=== PATIENT | male | born 1975 | race Caucasian/White ===

== ENCOUNTER 2021-05-19 18:14 | Observation (INO) | payer OTHER ==
[~2021-05-19] VITALS: Ht 177.8 cm; Wt 80.1 kg
--- NOTE | 2021-05-19 22:45 | NUR ---
pt ARRIVED FROM ED. MOVED SELF FROM STRETCHER TO BED. JUAN MANUEL LAI. IN ROOM TO DO ADMISSION.
--- NOTE | 2021-05-19 23:41 | NUR ---
PT TO ROOM 113 FROM ED VIA STRETCHER AT 2245. ALERT AND ORIENTED. ABLE TO TRANSFER SELF FROM STRETCHER TO BED. ORDERS RECEIVED. PT REPORTS PAIN 1/10 AT REST. SCHEDULED TYLENOL ADMINISTERED. IVF INFUSING ORDERED. PT DENIES CHEST PAIN OR SOB. SpO2 99% ON RA. RESPIRATIONS EVEN. SANDWICH BOX PROVIDED. SIGNIFICANT OTHER IN ROOM AND WILL SPEND THE NIGHT. PT ORIENTED TO ROOM AND NURSE CALL LIGHT. DENIES QUESTIONS OR CONCERNS AT THIS TIME. CALL LIGHT IN REACH.
--- NOTE | 2021-05-20 01:32 | NUR ---
PT RESTING IN BED WITH EYES CLOSED. RESPIRATIONS EVEN. CALL LIGHT IN REACH.
--- NOTE | 2021-05-20 04:17 | NUR ---
PT RESTING IN BED WITH EYES CLOSED. RESPIRATIONS EVEN. HOB ELEVATED. IVF INFUSING. S/O RESTING ON COUCH. CALL LIGHT IN REACH.
--- NOTE | 2021-05-20 05:12 | NUR ---
ASSESSMENT COMPLETE. PT REPORTS PAIN IS TOLERABLE, DENIES PRN FOR PAIN. DENIES CHEST PAIN OR SOB. PT DENIES NEEDS AT THIS TIME. S/O IN ROOM. CALL LIGHT IN REACH.
--- NOTE | 2021-05-20 06:48 | NUR ---
SCHEDULED MEDS ADMINISTERED. PT DENIES CP OR SOB. REPORTS PAIN IS TOLERABLE AT THIS TIME. S/O AT BEDSIDE. MENU PROVIDED FOR ORDERING BREAKFAST. NO FURTHER NEEDS AT THIS TIME.
[2021-05-20] MEDS ORDERED: VITAMIN B-121000 MCG PO (09:27)
[2021-05-20] MEDS ORDERED: VITAMIN C500 M1 PO (09:27)
[2021-05-20] MEDS ORDERED: COLLAGEN PLUS1 EACH PO (09:28)
[2021-05-20] MEDS ORDERED: BIOTIN1 MG PO (09:28)
[2021-05-20] MEDS ORDERED: FISH OIL 1,0001 EAC2 PO (09:29)
[2021-05-20] MEDS ORDERED: GLUCOSAMINE CH1 EAC1 PO (09:29)
--- NOTE | 2021-05-20 09:29 | NUR ---
MED REC COMPLETE
[2021-05-20] MEDS ORDERED: ACETAMINOPHEN500 MG PO (09:55)
[2021-05-20] MEDS ORDERED: IBUPROFEN600 MG PO (09:55)
[2021-05-20] MEDS ORDERED: PERCOCET 7.5-31 EACH PO (09:56)
--- NOTE | 2021-05-20 10:11 | NUR ---
Toradol 30mg IVP admin for reports of 5/10 back/rib pain.
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
== END 2021-05-20 11:00 | disposition home or self-care (01) ==
LOC: ED 18:14 → MS 18:16
PROVIDERS: ADMIT Surgery; ATTEND Surgery
DX: S22.41XA Multiple fractures of ribs, right side, initial encounter for closed fracture (principal); S42.031A Displaced fracture of lateral end of right clavicle, initial encounter for closed fracture; S27.329A Contusion of lung, unspecified, initial encounter; S27.0XXA Traumatic pneumothorax, initial encounter; V29.40XA Motorcycle driver injured in collision with unspecified motor vehicles in traffic accident, initial encounter; Y92.89 Other specified places as the place of occurrence of the external cause; Z91.038 Other insect allergy status; Z20.822 Contact with and (suspected) exposure to COVID-19
CPT/HCPCS: 71045; 71101; 71260; 72125; 73000; 80053; 82150; 82550; 83690; 85025; 86850; 86900; 86901; 99285-25; C9803; G0378; J1170; J1885; J2405; J7030; J7121; U0003